=== PATIENT | female | born 2000 | race Caucasian/White ===

== ENCOUNTER 2023-03-19 11:51 | Inpatient (IN) ==
[2023-03-19] MEDS ORDERED: LIDOCAINE 1% LOCAL 20 ML VIAL INFIL PRN (13:15)
[2023-03-19] MEDS ORDERED: OXYTOCIN 30 UNITS/500 ML BAG IV PRN ×2 (13:15→21:35)
--- NOTE | 2023-03-19 13:23 | Obstetrical Progress Note ---
Date of Service March 19, 2023 Assessment & Plan (1) : Plan: postdates FHR; CT1 Ctx 3-4mins VE: -5//-1 elevated Bp plan reviewed PNC labs admit anticipate VD Results & Data Vital Signs (Past 12 Hours) Vital Signs Temp Pulse Resp BP 03/19/23 12:49 37.1 C 03/19/23 13:14 90 130/90 03/19/23 12:54 90 140/88 03/19/23 12:45 86 134/91 03/19/23 12:36 99 H 129/80 03/19/23 12:25 96 H 136/101 H 03/19/23 12:15 90 130/89 03/19/23 12:04 100 H 134/91
[2023-03-19] MEDS: LACTATED RINGER'S 1,000 ML IV PRN ×2 (13:48→14:49)
[2023-03-19 14:33] LABS: Hematocrit (blood only) 36.9 % (37.0-47.0); Mean Corpuscular Hemoglobin 31.5 pg (25.0-34.0); Mean Corpuscular Hgb Conc 35.2 g/dL (32.0-36.0); Mean Corpuscular Volume 89.3 fL (80.0-100.0); Mean Platelet Volume 11.4 fL (9.4-12.4); Platelet Count 237 K/uL (130-400); RDW Coefficient of Variation 14.3 % (11.5-14.5); RDW Standard Deviation 46.6 fL (36.4-46.3); Red Blood Count 4.13 M/uL (4.20-5.40); White Blood Count 19.15 K/ul (4.8-10.8)
[2023-03-19 14:46] LABS: Albumin Globulin Ratio 1.2 (0.9-2); Albumin Level 3.5 gm/dl (3.4-5.0); BUN Creatinine Ratio 11.3 (10-20); Bilirubin,Total 0.7 mg/dl (0.2-1.0); Calcium 8.8 mg/dl (8.6-10.3); Creatinine Clr Calc Pharmacy 110.2 ml/min; Est GFR (African American) 138.2 ml/min; Est GFR (Non-African American) 119.2 ml/min; Potassium 3.8 mmol/L (3.5-5.1); Total Protein 6.5 gm/dl (6.0-8.3)
[2023-03-19] MEDS ORDERED: SODIUM CHLORIDE 0.9% PF INJ 10 ML VIAL ONE (14:52)
[2023-03-19] MEDS ORDERED: fentaNYL citrate PF 100 MCG/2 ML VIAL ONE (14:52)
[2023-03-19] MEDS ORDERED: BUPIVACAINE 0.25% PF 30 ML VIAL ONE (14:53)
[2023-03-19] MEDS ORDERED: LIDOCAINE 2%/EPINEPHRINE 1:200,000 20 ML PF ONE (14:53)
[2023-03-19] MEDS ORDERED: fentaNYL 2MCG/ML ROPIVACAINE 1.25MG/ML 100 ML BAG EPI ONE (14:53)
[2023-03-19] MEDS ORDERED: ePHEDrine sulfate 50 MG/ML AMP ONE (14:56)
[2023-03-19] MEDS ORDERED: ePHEDrine sulfate 50 MG/ML AMP IV PRN (15:27)
[2023-03-19] MEDS ORDERED: BUPIVACAINE 0.25% PF 30 ML VIAL EPI ONE (15:27)
[2023-03-19] MEDS ORDERED: BUPIVACAINE 0.25% PF 30 ML VIAL EPI STA (15:27)
[2023-03-19] MEDS ORDERED: NALOXONE HCL 0.4 MG/1 ML VIAL/CARP IV PRN (15:27)
[2023-03-19] MEDS ORDERED: fentaNYL citrate PF 100 MCG/2 ML VIAL EPI ONE (15:27)
[2023-03-19] MEDS ORDERED: LIDOCAINE 2%/EPINEPHRINE 1:200,000 20 ML PF EPI STA (15:27)
[2023-03-19] MEDS ORDERED: NALBUPHINE HCL INJ 10 MG/ML AMP IV PRN (15:27)
[2023-03-19] MEDS ORDERED: NALOXONE HCL 1 MG in SODIUM CHLORIDE 0.9% 1000ML 1,000 ML IV PRN (15:27)
[2023-03-19] MEDS ORDERED: diphenhydrAMINE 50 MG/ML VIAL IV PRN (15:27)
[2023-03-19] MEDS ORDERED: SODIUM CHLORIDE 0.9% PF INJ 10 ML VIAL EPI STA (15:27)
[2023-03-19] MEDS ORDERED: ROPIVACAINE 0.5% PF 5 MG/ML 20 ML VIAL EPI ONE (15:27)
[2023-03-19] MEDS ORDERED: fentaNYL 2MCG/ML ROPIVACAINE 1.25MG/ML 100 ML BAG EPI PRN (15:27)
[2023-03-19] MEDS ORDERED: LIDOCAINE 2% MPF LOCAL 5 ML VIAL EPI ONE (15:27)
[2023-03-19] MEDS ORDERED: ONDANSETRON INJ 2 MG/ML 2 ML VIAL IV PRN (15:27)
[2023-03-19] MEDS ORDERED: fentaNYL citrate PF 100 MCG/2 ML VIAL EPI STA (15:27)
[2023-03-19] MEDS ORDERED: SODIUM CHLORIDE 0.9% PF INJ 10 ML VIAL EPI ONE (15:27)
--- NOTE | 2023-03-19 15:29 | Anesthesiology Consultation ---
Date of Service March 19, 2023 Assessment & Plan (1) Encounter for pre-operative examination: Chart Review Chart Review: Patient NOT seen in Pre Admission Testing and Acceptable Risk for Labor Epidural Consults Requested none History Height/Weight Height: 5 ft 1 in Weight: 71.178 kg Allergies Allergy/AdvReac Type Severity Reaction Status Date / Time No Known Allergies Allergy Verified 12/31/02 17:35 N Allergy Unknown Uncoded 12/31/02 17:35 Medications Active Medications Generic Name Dose Route Start Last Admin Trade Name Freq PRN Reason Stop Dose Admin Lactated Ringer's 1,000 mls @ 125 mls/hr 03/19/23 13:15 03/19/23 14:49 Lr IV 03/21/23 13:14 125 mls/hr .Q8H PRN Administration L&D Protocol Protocol Past Medical History Medical History (Updated 03/19/23 @ 15:29 by Thomas Spicer MD) Encounter for pre-operative examination Migraine Shingles Exercise / Class Metabolic Activity II 4-5 Yardwork/Stairs/Walk up hill Past Surgical History Surgical History H/O LEEP Social History Smoking Status: Never smoker Hx Alcohol Use: No Hx Substance Use: No Physical Exam Vital Signs Last Vital Signs Temp 37.1 C 03/19/23 12:49 Pulse 97 H 03/19/23 15:46 Resp 22 03/19/23 12:49 BP 127/79 03/19/23 15:47 Pulse Ox 98 03/19/23 15:46 Testing Laboratory Results 03/19/23 14:08 03/19/23 14:08
--- NOTE | 2023-03-19 17:04 | Obstetrical Progress Note ---
Date of Service March 19, 2023 Assessment & Plan (1) : Plan: Pt doing well FHR;CAT1 Ctx 2-3 VE 5-6/90/-1 AROM with Amnio hook -Clear Admission and Anticipated Discharge Date Admission Date: March 19, 2023 Results & Data Vital Signs (Past 12 Hours) Vital Signs Temp Pulse Resp BP Pulse Ox 03/19/23 12:49 37.1 C 22 03/19/23 17:01 100 H 98 03/19/23 16:59 98 H 119/74 03/19/23 16:56 96 H 98 03/19/23 16:54 97 H 126/73 03/19/23 16:51 93 H 95 03/19/23 16:49 102 H 120/72 03/19/23 16:46 95 H 98 03/19/23 16:43 98 H 114/74 03/19/23 16:41 103 H 97 03/19/23 16:38 98 H 114/66 03/19/23 16:36 96 H 97 03/19/23 16:33 94 H 116/63 03/19/23 16:31 91 H 97 03/19/23 16:28 91 H 116/58 L 03/19/23 16:26 94 H 98 03/19/23 16:23 100 H 116/74 03/19/23 16:21 95 H 97 03/19/23 16:18 90 127/78 03/19/23 16:16 96 H 97 03/19/23 16:14 94 H 120/68 03/19/23 16:11 98 H 96 03/19/23 16:09 90 111/66 03/19/23 16:06 98 H 97 03/19/23 16:01 101 H 110/63 96 03/19/23 15:59 97 H 110/61 03/19/23 15:58 101 H 122/67 03/19/23 15:56 98 H 97 03/19/23 15:55 88 110/55 L 03/19/23 15:53 90 107/57 L 03/19/23 15:51 93 H 114/63 97 03/19/23 15:49 94 H 117/66 03/19/23 15:47 127/79 03/19/23 15:46 97 H 98 03/19/23 15:45 93 H 125/74 03/19/23 15:41 103 H 98 03/19/23 15:36 100 H 99 03/19/23 13:25 96 H 136/82 03/19/23 13:14 90 130/90 03/19/23 12:54 90 140/88 03/19/23 12:45 86 134/91 03/19/23 12:36 99 H 129/80 03/19/23 12:25 96 H 136/101 H 03/19/23 12:15 90 130/89 03/19/23 12:04 100 H 134/91
[2023-03-19] MEDS ORDERED: METHYLERGONOVINE MALEATE 0.2 MG/ML AMP ONE (21:33)
[2023-03-19] MEDS ORDERED: BENZOCAINE 20% AER SPR 82.5 GM CAN EXT PRN (21:35)
[2023-03-19] MEDS ORDERED: METHYLERGONOVINE MALEATE 0.2 MG/ML AMP IM ONE (21:35)
[2023-03-19] MEDS ORDERED: bisacodyL 10 MG SUPP PR PRN (21:35)
[2023-03-19] MEDS ORDERED: ACETAMINOPHEN 325 MG TAB PO PRN (21:35)
[2023-03-19] MEDS ORDERED: miSOPROStoL 200 MCG TAB ONE (21:35)
[2023-03-19] MEDS ORDERED: DIPHTHERIA/TETANUS/PERTUSSIS 0.5mL SYR/VIAL (Age 7+yrs) IM ONE (21:35)
[2023-03-19] MEDS ORDERED: HYDROCORTISONE ACETATE 25 MG SUPP PR PRN (21:35)
[2023-03-19] MEDS ORDERED: miSOPROStoL 200 MCG TAB PR ONE (21:35)
--- NOTE | 2023-03-19 22:13 | Anesthesia Procedure Note ---
Date of Service March 19, 2023 Anesthesia Post Epidural Note Vital Signs Vital Signs: Temp Pulse Resp BP Pulse Ox 36.8 C 98 H 16 156/89 H 96 03/19/23 22:00 03/19/23 22:00 03/19/23 21:01 03/19/23 22:00 03/19/23 21:31 Notes Mental Status: alert / awake / arousable and participated in evaluation Patient Amnestic to Procedure: No Nausea / Vomiting: adequately controlled Pain: adequately controlled Airway Patency, RR, SpO2: stable & adequate BP & HR: stable & adequate Hydration State: stable & adequate Neuraxial Anesthesia: was administered and sensory block is resolving Anesthetic Complications: no major complications apparent and Pt Satisfied with anesthetic care Epidural: Removed without complications and With tip intact
[2023-03-20] MEDS: IBUPROFEN 600 MG TAB PO PRN ×4 (00:22→19:20)
--- NOTE | 2023-03-20 02:26 | Delivery Summary ---
The patient delivered a live in the left occiput anterior presentation. There was no nuchal c ord. was delivered and placed on mother's abdomen. Delayed cord clamp was performed after 1 minute. Cord blood was obtained. Placenta was spontaneously delivered. Inspection of the placenta shows a normal looking placenta with 3-vessel cord. Inspection of the perineum shows a second-degree midline laceration, which was repaired in layers with 2-0 and 3-0 Vicryl. Rectal exam post-repair s hows good sphincter tone. No sutures are palpated in the rectum. Estimated blood loss was 500 mL. Baby and mother are doing well. There was good hemostasis. Retract ors and sutures are accounted for x2. The patient is sent to recovery in stable condition with baby. Baby's weight and Apgars are in the pediatric record. Job ID: [id number]
[2023-03-20 06:55] LABS: Hematocrit (blood only) 34.7 % (37.0-47.0); Hemoglobin 11.9 g/dl (12.0-16.0); Mean Corpuscular Hemoglobin 30.6 pg (25.0-34.0); Mean Corpuscular Hgb Conc 34.3 g/dL (32.0-36.0); Mean Corpuscular Volume 89.2 fL (80.0-100.0); Mean Platelet Volume 10.9 fL (9.4-12.4); Platelet Count 222 K/uL (130-400); RDW Coefficient of Variation 14.5 % (11.5-14.5); RDW Standard Deviation 46.6 fL (36.4-46.3); Red Blood Count 3.89 M/uL (4.20-5.40); White Blood Count 21.18 K/ul (4.8-10.8)
[2023-03-20] MEDS: PRENATAL VITAMIN 1 TAB PO SCH (08:40)
[2023-03-20] MEDS: DOCUSATE SODIUM 100 MG CAP PO SCH ×2 (08:40→22:09)
--- NOTE | 2023-03-20 08:54 | Obstetrical Progress Note ---
Date of Service March 20, 2023 Assessment & Plan Admission and Anticipated Discharge Date Admission Date: March 19, 2023 Subjective Patient is seen and examined. She feels well, no complaints. Ambulating without dizziness Voiding without difficulty Tolerating regular diet with out N&V Bleeding is minimal No fever/ chills/ CP/ SOB/ N&V/ Leg pain Breast feeding without problems Vital Signs Temp Pulse Pulse Resp BP BP Pulse Ox 03/20/23 03:15 36.8 C 98 H 16 119/79 97 03/20/23 00:20 37.6 C H 51 L 18 125/88 98 03/19/23 23:30 120 H 130/81 03/19/23 23:15 115 H 128/82 03/19/23 23:00 105 H 131/82 03/19/23 22:30 96 H 143/72 H 03/19/23 22:15 92 H 140/83 03/19/23 22:00 36.8 C 98 H 156/89 H 03/19/23 21:45 103 H 137/81 03/19/23 21:31 108 H 96 03/19/23 21:30 109 H 135/96 03/19/23 21:26 106 H 98 03/19/23 21:21 97 03/19/23 21:21 112 H 03/19/23 21:21 111 H 133/73 03/19/23 21:16 112 H 97 03/19/23 21:11 112 H 97 03/19/23 21:06 116 H 142/77 H 97 03/19/23 21:01 36.6 C 127 H 16 98 03/19/23 20:56 117 H 99 O2 Del Method 03/20/23 03:15 Room Air 03/20/23 00:20 Room Air 03/19/23 23:30 03/19/23 23:15 03/19/23 23:00 03/19/23 22:30 03/19/23 22:15 03/19/23 22:00 03/19/23 21:45 03/19/23 21:31 03/19/23 21:30 03/19/23 21:26 03/19/23 21:21 03/19/23 21:21 03/19/23 21:21 03/19/23 21:16 03/19/23 21:11 03/19/23 21:06 03/19/23 21:01 03/19/23 20:56 Lab Results 03/19/23 03/19/23 03/20/23 Range/Units 14:08 14:08 06:22 WBC 19.15 H 21.18 H (4.8-10.8) K/ul RBC 4.13 L 3.89 L (4.20-5.40) M/uL Hgb 13.0 11.9 L (12.0-16.0) g/dl Hct 36.9 L 34.7 L (37.0-47.0) % MCV 89.3 89.2 (80.0-100.0) fL MCH 31.5 30.6 (25.0-34.0) pg MCHC 35.2 34.3 (32.0-36.0) g/dL RDW Std Deviation 46.6 H 46.6 H (36.4-46.3) fL RDW Coeff of Erik 14.3 14.5 (11.5-14.5) % Plt Count 237 222 (130-400) K/uL MPV 11.4 10.9 (9.4-12.4) fL Sodium 132 L (136-145) mmol/L Potassium 3.8 (3.5-5.1) mmol/L Chloride 104 (98-107) mmol/L Carbon Dioxide 21 (21-32) mmol/L Anion Gap 7 (3-11) BUN 8 (6-23) mg/dl Creatinine 0.71 (0.6-1.2) mg/dl Est Cr Clr Drug Dosing 110.2 ml/min Est GFR ( Amer) 138.2 ml/min Est GFR (Non-Af Amer) 119.2 ml/min BUN/Creatinine Ratio 11.3 (10-20) Glucose 91 (70-99(Fasting)) mg/dl Calcium 8.8 (8.6-10.3) mg/dl Total Bilirubin 0.7 (0.2-1.0) mg/dl AST 21 (13-39) U/L ALT 13 (7-52) U/L Alkaline Phosphatase 238 H (34-104) U/L Total Protein 6.5 (6.0-8.3) gm/dl Albumin 3.5 (3.4-5.0) gm/dl Globulin 3.0 (2.5-4.0) gm/dl Albumin/Globulin Ratio 1.2 (0.9-2) PE: General: Alert, orientedx3, NAD Abd: soft, NT, fundus firm, below Umbilicus Perineum intact, Lochia rubra minimal Ext; NT, no edema AP: 22 yo s/p , ppd# 1 VSS Afebrile doing well CBC in am Continue routine care All questions were answered D/C home , f/u in office Results & Data Vital Signs (Past 12 Hours) Vital Signs Temp Pulse Pulse Resp BP BP Pulse Ox 03/20/23 03:15 36.8 C 98 H 16 119/79 97 03/20/23 00:20 37.6 C H 51 L 18 125/88 98 03/19/23 23:30 120 H 130/81 03/19/23 23:15 115 H 128/82 03/19/23 23:00 105 H 131/82 03/19/23 22:30 96 H 143/72 H 03/19/23 22:15 92 H 140/83 03/19/23 22:00 36.8 C 98 H 156/89 H 03/19/23 21:45 103 H 137/81 03/19/23 21:31 108 H 96 03/19/23 21:30 109 H 135/96 03/19/23 21:26 106 H 98 03/19/23 21:21 97 03/19/23 21:21 112 H 03/19/23 21:21 111 H 133/73 03/19/23 21:16 112 H 97 03/19/23 21:11 112 H 97 03/19/23 21:06 116 H 142/77 H 97 03/19/23 21:01 36.6 C 127 H 16 98 03/19/23 20:56 117 H 99 O2 Del Method 03/20/23 03:15 Room Air 03/20/23 00:20 Room Air 03/19/23 23:30 03/19/23 23:15 03/19/23 23:00 03/19/23 22:30 03/19/23 22:15 03/19/23 22:00 03/19/23 21:45 03/19/23 21:31 03/19/23 21:30 03/19/23 21:26 03/19/23 21:21 03/19/23 21:21 03/19/23 21:21 03/19/23 21:16 03/19/23 21:11 03/19/23 21:06 03/19/23 21:01 03/19/23 20:56
[2023-03-20] MEDS ORDERED: bisacodyL 5 MG TABEC PO SCH (20:00)
[2023-03-21 06:09] LABS: Basophils # (auto) 0.05 K/uL (0-0.2); Basophils % (auto) 0.3 %; Eosinophils # (auto) 0.19 K/uL (0-0.50); Eosinophils % (auto) 1.1 %; Hematocrit (blood only) 35.2 % (37.0-47.0); Hemoglobin 11.9 g/dl (12.0-16.0); Immature Granulocytes # (auto) 0.12 K/uL (0.01-0.20); Immature Granulocytes % (auto) 0.7 %; Lymphocytes # (auto) 4.19 K/uL (1.2-3.4); Lymphocytes % (auto) 23.7 %; Mean Corpuscular Hemoglobin 31.1 pg (25.0-34.0); Mean Corpuscular Hgb Conc 33.8 g/dL (32.0-36.0); Mean Corpuscular Volume 91.9 fL (80.0-100.0); Mean Platelet Volume 10.8 fL (9.4-12.4); Monocytes # (auto) 1.43 K/uL (0.11-0.59); Monocytes % (auto) 8.1 %; Neutrophils % (auto) 66.1 %; Platelet Count 237 K/uL (130-400); RDW Coefficient of Variation 14.6 % (11.5-14.5); RDW Standard Deviation 49.2 fL (36.4-46.3); Red Blood Count 3.83 M/uL (4.20-5.40); White Blood Count 17.68 K/ul (4.8-10.8)
[2023-03-21] MEDS: PRENATAL VITAMIN 1 TAB PO SCH (08:26)
[2023-03-21] MEDS: DOCUSATE SODIUM 100 MG CAP PO SCH (08:26)
[2023-03-21] MEDS: IBUPROFEN 600 MG TAB PO PRN (08:27)
== END 2023-03-21 13:00 | disposition home or self-care (01) | DRG 807 ==
LOC: OPB 11:51 → 4S1 11:56 → 4E2 03-20 00:15

== ENCOUNTER 2025-07-30 14:03 | Inpatient (IN) ==
[2025-07-30] MEDS ORDERED: LIDOCAINE 1% LOCAL 20 ML VIAL INFIL PRN (17:12)
[2025-07-30] MEDS ORDERED: CALCIUM CARBONATE 500 MG CHEWABLE TAB PO PRN (17:12)
[2025-07-30] MEDS ORDERED: ACETAMINOPHEN 500 MG TAB PO PRN (17:12)
--- NOTE | 2025-07-30 17:19 | History & Physical Report ---
Date of Service July 30, 2025 Assessment & Plan (1) Polyhydramnios affecting in third trimester: Plan: 25-year-old at 40 Weeks and 1 Day gestation, sent from office for Persistent Polyhydramnios, JAROD over 30 Cm, Favorable Cervix, Vital Signs Stable Afebrile, GBS Negative, Heart Rate Reassuring, Plan to Admit, Monitor, Labs, Oxytocin per Protocol AROM When Able Epidural When Patient Desires, Patient Agrees with Plan and All Questions Were Answered. (2) 40 weeks gestation of : Admission and Anticipated Discharge Date Admission Date: July 30, 2025 History of Present Illness Primary Care Provider: Mark Kaufman MD patient is a 25-year-old -0-1-1 at 40 weeks and 1 day gestation who has been followed at the office and by M for polyhydramnios. It was mildly elevated and she was scheduled for induction of labor next week at 41 weeks. She was in office today for a repeat ultrasound for JAROD which was over 30 cm. Recommended induction of labor at term. She denies contractions, leakage of fluid, vaginal bleeding. She reports good movements. Her has been complicated by, 1. Polyhydramnios, past OGTT no history of GDM, 2. Hypothyroidism on levothyroxine, 3. History of LEEP, Denies any other medical problems, GBS negative. She delivered a viable male 12 years ago, her baby was 9 pounds 4 ounces Allergies Allergy/AdvReac Type Severity Reaction Status Date / Time adhesive Allergy Mild Hives Verified 07/30/25 16:37 Home Medications Medication Instructions Recorded Confirmed Type ferrous sulfate 325 mg (65 mg 325 mg PO DAILY 07/30/25 07/30/25 History iron) tablet (iron) levothyroxine 75 mcg tablet 75 mcg PO DAILY 07/30/25 07/30/25 History vits no.124-ferrous fum 1 tab PO DAILY 07/30/25 07/30/25 History 27 mg iron-folic acid 800 mcg tablet ( Vitamin) Patient History Medical History ASCUS (atypical squamous cells of undetermined significance) on gynecologic Papanicolaou smear complicating , antepartum Patient has had a normal PAP on 07/2022. Left breast mass Hypothyroid Graves' disease Shingles Migraine Surgical History H/O LEEP Family History Mother Acute Crohn's disease Father Myocardial infarction Aunt Diabetes Social History Smoking Status: Never smoker Hx Alcohol Use: No Hx Substance Use: No Preferred Language: Uzbek Communication Ability: Effective Customer Service Attendant Required: No Beliefs That Will Affect Care: None marital status: marital status details: Stas Boyd Current Living Situation: Spouse current occupational status: employed current occupation: [employer] Other Information That Helps Us Care for You: No Feels Safe at Home: Yes Safety Concerns: Feels Safe At This Time Diet: regular Assistive Devices: None [employer] History no history of STDs, no history of chlamydia, gonorrhea, Herpes Review of Systems as per Subjective / HPI Physical Exam Constitutional: WD/WN, vitals as above well developed, well nourished and comfortable Gastrointestinal (Abdomen): normal bowel sounds, soft, nontender, no hepa tosplenomegaly Bedside Ultrasound Confirmed Vertex Presentation EFW Is 3450 G, Baby Is Very Active Genitourinary: normal external appearance OB Exam Abdomen: + vertex Manual OB Exam: + cervical dilation 3 cm, + cervical effacement 60% and + station -2 OB Exam Monitor Tracing: + external uterine monitor used and + category I Results & Data Vital Signs (Past 12 Hours) Vital Signs Temp Pulse Resp BP 07/30/25 16:39 36.8 C 18 07/30/25 16:30 109 H 123/78
[2025-07-30 17:46] LABS: Hematocrit (blood only) 34.5 % (37.0-47.0); Hemoglobin 11.0 g/dl (12.0-16.0); Mean Corpuscular Hemoglobin 25.6 pg (25.0-34.0); Mean Corpuscular Volume 80.2 fL (80.0-100.0); Platelet Count 252 K/uL (130-400); RDW Standard Deviation 51.4 fL (36.4-46.3); Red Blood Count 4.30 M/uL (4.20-5.40); White Blood Count 11.18 K/ul (4.8-10.8)
[2025-07-30] MEDS: LACTATED RINGER'S 1,000 ML IV PRN (17:51)
[2025-07-30] MEDS: OXYTOCIN 30 UNITS/NSS 30 UNITS/500 ML BAG IV PRN ×2 (17:52→23:30)
[2025-07-30 18:03] LABS: Alanine Aminotransferase 12.0 U/L (7-52); Albumin Globulin Ratio 1.0 (0.9-2); Alkaline Phosphatase 171.0 U/L (34-104); Anion Gap 10.0 (3-11); Bilirubin,Total 0.5 mg/dl (0.2-1.0); Blood Urea Nitrogen 9.0 mg/dl (6-23); Calcium 9.0 mg/dl (8.6-10.3); Carbon Dioxide 22.0 mmol/L (21-32); Chloride 104.0 mmol/L (98-107); Creatinine Clr Calc Pharmacy 113.3 ml/min; Globulin 3.5 gm/dl (2.5-4.0); Glucose 94.0 mg/dl (70-99(Fasting)); Potassium 3.9 mmol/L (3.5-5.1); Sodium 136.0 mmol/L (136-145); Total Protein 7.0 gm/dl (6.0-8.3)
[2025-07-30] MEDS: LIDOCAINE 2% LOCAL 20 ML VIAL ONE (22:56)
[2025-07-30] MEDS: BUTORPHANOL TARTRATE 1 MG/ML VIAL ONE (22:56)
--- NOTE | 2025-07-30 23:57 | Delivery Summary ---
Vaginal Delivery Summary Date of Service July 30, 2025 Vaginal Delivery Summary Patient was on Pitocin per protocol for induction of labor. She became painful and asked for epidural. Right after that SROM at 22:35 and abundant clear fluid and then felt pressure and wanted to push. She pushed and precipitously delivered a viable male at 22:48 pm completely without any traction on the shoulders. patient has not had a chance to get epidural. The baby was handed off to the mother. The cord was clampedx2 and cut at 1 minute. The vagina and perineum were checked and found to have small second degree perineal laceration. The vaginal mucosa was repaired with 2/0 vicryl and skin on subcuticular fashion. There was a small left upper labial laceration which was first-degree patient opted not to have sutured due to no epidural and very tender to touch. It was covered with hemostatic powder and applied pressure and it was hemostatic. The placenta was delivered spontaneously as intact and complete. The uterus was explored and found to be empty. QBL was 110 ml. The fundus was firm. The baby was a viable male infant, Apgars 8/9, the weight is pending The mother and the baby tolerated the procedure well. No complications happened and I was present during whole procedure.
[2025-07-31] MEDS ORDERED: DIPHTHER/TETAN/PERTUS Vaccine (Tdap, Adol/Adult) 0.5mL IM ONE (00:04)
[2025-07-31] MEDS ORDERED: HYDROCORTISONE ACETATE 25 MG SUPP PR PRN (00:04)
[2025-07-31] MEDS ORDERED: OXYTOCIN 30 UNITS/NSS 30 UNITS/500 ML BAG IV PRN (00:04)
[2025-07-31] MEDS: IBUPROFEN 600 MG TAB PO PRN (00:18)
[2025-07-31] MEDS: ACETAMINOPHEN 325 MG TAB PO PRN (00:18)
[2025-07-31] MEDS: fentANYL 2 MCG/ML BUPIVacaine 0.125%-NSS 100ML BAG ONE (01:07)
[2025-07-31] MEDS: BUPIVACAINE 0.25% PF 30 ML VIAL ONE (01:07)
[2025-07-31] MEDS: LIDOCAINE 2%/EPINEPHRINE 1:200,000 20 ML PF ONE (01:08)
[2025-07-31] MEDS: SODIUM CHLORIDE 0.9% PF INJ 10 ML VIAL ONE (01:09)
[2025-07-31] MEDS: BENZOCAINE 20% SPRY 85 APPLN/85 GM CAN EXT PRN (06:06)
[2025-07-31] MEDS: LEVOTHYROXINE SODIUM 75 MCG TABLET PO SCH (07:26)
[2025-07-31] MEDS: FERROUS SULFATE 325 MG TAB PO SCH (08:48)
[2025-07-31] MEDS: PRENATAL VITAMIN 1 TAB PO SCH (08:48)
[2025-07-31] MEDS: DOCUSATE SODIUM 100 MG CAP PO SCH (08:48)
--- NOTE | 2025-07-31 10:16 | Obstetrical Progress Note ---
Date of Service July 31, 2025 Assessment & Plan (1) Normal course: PPD #1 pt doing well anticipate disch tomorrow Subjective Ambulation: ambulating normally Voiding: no voiding problems Passing Gas:: Yes Diet Tolerance:: regular diet Lochia:: Small Feeding Type:: breast feeding Review of Systems All systems reviewed & are unremarkable except as noted in HPI & below Physical Exam Constitutional WD/WN, vitals as above well developed and well nourished Eyes PERRL, conjunctivae normal, anicteric sclerae Neck trachea midline, no thyromegaly Respiratory normal respiratory effort, lungs clear to auscultation Auscultation: no crackles, no rales and no wheezes Cardiovascular RRR, no murmur, no edema Gastrointestinal (Abdomen) normal bowel sounds, soft, nontender, no hepatosplenomegaly Uterus is below umbilicus Musculoskeletal no cyanosis or clubbing, extremities motor strength 5/5 Skin no rashes, warm and dry Neurologic patellar DTR's 2+ bilat, sensation intact Psychiatric A+Ox3, euthymic affect Genitourinary normal external appearance Results & Data Vital Signs (Past 12 Hours) Vital Signs Temp Pulse Pulse Resp BP BP Pulse Ox 07/31/25 07:15 36.8 C 70 18 118/81 98 07/31/25 03:00 36.6 C 72 16 122/79 97 07/31/25 01:57 88 100/57 L 07/30/25 23:46 16 07/30/25 23:46 36.7 C 16 07/30/25 22:55 36.6 C O2 Del Method 07/31/25 07:15 Room Air 07/31/25 03:00 Room Air 07/31/25 01:57 07/30/25 23:46 07/30/25 23:46 07/30/25 22:55
--- NOTE | 2025-07-31 10:17 | Obstetrical Progress Note ---
Date of Service July 31, 2025 Assessment & Plan (1) Normal course: Post day #1 Vaginal delivery Pt doing well No complaints Stable vitals Stable labs. H/H: 11/34.5 Tolerating PO food and med Anticipate dsich tomorrow Subjective Ambulation: ambulating normally Voiding: no voiding problems Passing Gas:: Yes Diet Tolerance:: regular diet Lochia:: Small Feeding Type:: breast feeding Review of Systems All systems reviewed & are unremarkable except as noted in HPI & below Physical Exam Constitutional WD/WN, vitals as above well developed and well nourished Eyes PERRL, conjunctivae normal, anicteric sclerae Neck trachea midline, no thyromegaly Respiratory normal respiratory effort, lungs clear to auscultation Auscultation: no crackles, no rales and no wheezes Cardiovascular RRR, no murmur, no edema Gastrointestinal (Abdomen) normal bowel sounds, soft, nontender, no hepatosplenomegaly Uterus is below umbilicus Musculoskeletal no cyanosis or clubbing, extremities motor strength 5/5 Skin no rashes, warm and dry Neurologic patellar DTR's 2+ bilat, sensation intact Psychiatric A+Ox3, euthymic affect Genitourinary normal external appearance Results & Data Vital Signs (Past 12 Hours) Vital Signs Temp Pulse Pulse Resp BP BP Pulse Ox 07/31/25 07:15 36.8 C 70 18 118/81 98 07/31/25 03:00 36.6 C 72 16 122/79 97 07/31/25 01:57 88 100/57 L 07/30/25 23:46 16 07/30/25 23:46 36.7 C 16 07/30/25 22:55 36.6 C O2 Del Method 07/31/25 07:15 Room Air 07/31/25 03:00 Room Air 07/31/25 01:57 07/30/25 23:46 07/30/25 23:46 07/30/25 22:55
[2025-07-31 23:08] VITALS: RESP 18
[2025-07-31 23:43] VITALS: O2SAT 97
[2025-08-01] MEDS: MEASLES, MUMPS & RUBELLA VIRUS VACCINE (MMR) 0.5ML VIAL SQ ONE (06:21)
--- NOTE | 2025-08-01 07:32 | Obstetrical Progress Note ---
Date of Service August 01, 2025 Assessment & Plan (1) Normal course: Post day #2 Vaginal delivery Pt doing well No complaints Stable vitals Tolerating PO food and med Pt wishes to be discharged home Subjective Ambulation: ambulating normally Voiding: no voiding problems Passing Gas:: Yes Diet Tolerance:: regular diet Lochia:: Small Feeding Type:: breast feeding Review of Systems All systems reviewed & are unremarkable except as noted in HPI & below Physical Exam Constitutional WD/WN, vitals as above well developed and well nourished Eyes PERRL, conjunctivae normal, anicteric sclerae Neck trachea midline, no thyromegaly Respiratory normal respiratory effort, lungs clear to auscultation Auscultation: no crackles, no rales and no wheezes Cardiovascular RRR, no murmur, no edema Gastrointestinal (Abdomen) normal bowel sounds, soft, nontender, no hepatosplenomegaly Uterus is below umbilicus Musculoskeletal no cyanosis or clubbing, extremities motor strength 5/5 Skin no rashes, warm and dry Neurologic patellar DTR's 2+ bilat, sensation intact Psychiatric A+Ox3, euthymic affect Genitourinary normal external appearance Results & Data Vital Signs (Past 12 Hours) Vital Signs Temp Pulse Resp BP Pulse Ox O2 Del Method 07/31/25 23:41 36.9 C 68 18 107/68 97 Room Air 07/31/25 20:45 37 C 78 18 108/73 96 Room Air
[2025-08-01 07:46] LABS: Hematocrit (blood only) 31.5 % (37.0-47.0); Hemoglobin 9.6 g/dl (12.0-16.0); Mean Corpuscular Hemoglobin 25.2 pg (25.0-34.0); Mean Corpuscular Volume 82.7 fL (80.0-100.0); Platelet Count 262 K/uL (130-400); RDW Standard Deviation 53.3 fL (36.4-46.3); Red Blood Count 3.81 M/uL (4.20-5.40); White Blood Count 14.21 K/ul (4.8-10.8)
[2025-08-01 08:28] VITALS: BP 110/74; PULSE 63; TEMP 98.2
== END 2025-08-01 12:46 | disposition home or self-care (01) | DRG 807 ==
LOC: 4S1 16:10 → 4E2 07-31 02:17